=== PATIENT | male | born 1960 | race Caucasian/White ===

== ENCOUNTER 2020-01-19 16:53 | Observation (INO) | payer OTHER, MEDICAID, SELFPAY ==
[2020-01-19] VITALS (14 sets, daily range): BP systolic 102–142; BP diastolic 67–105; PULSE 60–150; RESP 16–24; TEMP 36.6–36.9; O2SAT 96–98; BMI 35.4
--- NOTE | ~2020-01-19 | XR_ITS ---
XR chest 2V DATE: 01/19/2020 17:31 INDICATION: Chest pain, shortness of breath for one day. Hypertension. Stent placed in March 2019. TECHNIQUE: 2 views COMPARISON: None FINDINGS: Normal heart size. Aortic arch calcification. No hilar or mediastinal enlargement. No pulmonary infiltrate or consolidation, pleural effusion or pulmonary vascular congestion or pneumo thorax. Diffuse osteopenia. IMPRESSION: No active cardiopulmonary disease Aortic arch calcification Reviewed, dictated and finalized at location A.
--- NOTE | 2020-01-19 16:56 | ECG_ITS ---
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
[2020-01-19] MEDS: dilTIAZem HCl INJ 25 MG/5 ML VIAL 10 MG IV PUSH ×2 (17:14→17:34)
[2020-01-19 17:20] LABS: Basophils Absolute Auto 0.1 K/mm3 (0.0-0.1); Basophils Percent Auto 0.8 % (0.2-1.2); Eosinophils Absolute Auto 0.2 K/mm3 (0-0.3); Hematocrit 46.3 % (42.0-52.0); Hemoglobin 15.7 g/dL (14.0-18.0); Immature Granulocyte Absolute 0.02 K/mm3 (0.00-0.031); Immature Granulocyte Percent A 0.3 % (0-0.5); Lymphocytes Absolute Auto 2.33 K/mm3 (0.9-3.2); Mean Corpuscular HGB Conc 33.9 g/dl (32-36); Mean Corpuscular Hemoglobin 30.8 pg (26-34); Mean Corpuscular Volume 90.8 fl (80-100); Mean Platelet Volume 11.2 fl (7.4-10.4); Monocytes Absolute Auto 0.6 K/mm3 (0.1-0.6); Monocytes Percent Auto 10.2 % (2.6-8.5); Neutrophils Absolute Auto 3.1 K/mm3 (1.3-6.7); Neutrophils Percent Auto 48.7 % (45.5-73.1); Platelet Count Result 215 k/mm3 (150-375); Red Cell Distribution Width 13.4 % (11.5-14.5); White Blood Count 6.3 K/mm3 (4.5-10.0)
[2020-01-19 17:31] LABS: Anion Gap 8 mmol/L (8-16); Blood Urea Nitrogen 17 mg/dL (9-20); Calcium 9.2 mg/dL (8.4-10.2); Carbon Dioxide 26 mmol/L (22-30); Chloride 107 mmol/L (98-107); Estimated CRCL calculation 127 ml/min; Estimated Glomerular Filt Rate > 60; Glucose 125 mg/dL (75-110); Potassium 3.6 mmol/L (3.4-5.0); Sodium 141 mmol/L (137-145)
[2020-01-19 17:35] LABS: INR 1.1; Prothrombin Time 14.3 Seconds (11.1-14.7)
[2020-01-19 17:36] LABS: Partial Thromboplastin Time 25.4 SECONDS (22.3-36.8)
[2020-01-19 17:43] LABS: Troponin I < 0.012 ng/mL (0.000-0.034)
--- NOTE | 2020-01-19 18:25 | ED.CHESTPAIN ---
HPI - Chest Pain General Chief Complaint: Chest Pain Stated Complaint: Chest pain Time Seen by Provider: 01/19/20 17:05 Source: patient and family Mode of arrival: ambulatory Limitations: no limitations History of Present Illness HPI narrative: 59 years old white male presents to the ED because of left chest pain radiating to his neck and jaw with diaphoresis that started last night, associated with shortness of breath on exertion and pounding fast heartbeat. History of coronary stent x1, history of atrial fibrillation which is converted to normal sinus rhythm currently on no anticoagulant medication. Patient on baby aspirin. MD complaint: chest pain Pertinent past history: coronary artery disease Related Data Home Medications Medication Instructions Recorded Confirmed acetaminophen 325 mg PO ONCE PRN 01/19/20 albuterol sulfate 1 puff INHALATION QID PRN 01/19/20 alprazolam 0.5 mg PO HS PRN 01/19/20 ascorbic acid (vitamin C) [Vitamin 1 g PO DAILY 01/19/20 C] aspirin 325 mg PO BID 01/19/20 cetirizine 10 mg PO DAILY 01/19/20 cholecalciferol (vitamin D3) 125 mcg PO DAILY 01/19/20 [Vitamin D3] clopidogrel 75 mg PO DAILY 01/19/20 losartan 100 mg PO DAILY 01/19/20 metoprolol tartrate 25 mg PO BID 01/19/20 nifedipine 10 mg PO HS 01/19/20 nitroglycerin 0.6 mg SUBLINGUAL Q5-15M PRN 01/19/20 pantoprazole PO 01/19/20 01/19/20 Allergies Allergy/AdvReac Type Severity Reaction Status Date / Time succinylcholine Allergy Other Verified 01/19/20 17:03 Review of Systems Review of Systems: Narrative: CONSTITUTIONAL: Denies fever, chills, or sweats. EYES: Denies visual changes, redness, or discharge. ENT: Denies rhinorrhea, congestion, sore throat, or otalgia. CARDIOVASCULAR: Complaining of chest pain RESPIRATORY: Denies cough or dyspnea. GASTROINTESTINAL: Denies abdominal pain, nausea, vomiting, or diarrhea. GENITOURINARY: Denies dysuria or hematuria. SKIN: Denies rash or itching. MUSCULOSKELETAL: Denies back pain, joint pain, or myalgia. NEUROLOGIC: Denies headache, numbness, or weakness. PSYCHIATRIC: Denies anxiety or depression. [facility] Past Medical History Medical History (Updated 01/19/20 @ 19:22 by Matheus Bird MD) Atrial fibrillation with rapid ventricular response Coronary artery disease Hypertension Social History Social History Gender identity (if verbalized by the patient): Male Exam Narrative: Exam Narrative: General appearance: Well-developed, well-nourished Skin: Normal color Head: Normocephalic, nontraumatic Eyes: Clear conjunctiva ENT: Oropharynx normal, ears normal, nose normal Neck: Supple, nontender Chest and respiratory: Airway patent, no respiratory distress, no accessory muscle use Heart: Tachycardia Abdomen: Soft, nontender, no organomegaly, quiet bowel sounds Vascular: Normal peripheral pulses, normal capillary refill. 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, no gross motor deficit Course Course Emergency Course: Stable Vital Signs Vital signs: Vital Signs Temperature 36.6 C 01/19/20 17:04 Pulse Rate 149 H 01/19/20 17:04 Respiratory Rate 24 H 01/19/20 17:04 Blood Pressure 142/105 H 01/19/20 17:04 Pulse Oximetry 98 01/19/20 17:04 Temperature 36.6 C 01/19/20 17:04 Pulse Rate 148 H 01/19/20 18:07 Respiratory Rate 18 01/19/20 17:44 Blood Pressure 117/90 01/19/20 18:07 Pulse Oximetry 98 01/19/20 17:44 MDM - Chest Pain MDM Narrative Medical decision making narrative: Patient presents with EKG showing atrial flutter 148 bpm associated with chest pain and palpitation. Patient currentl
[2020-01-19] MEDS: ENOXAPARIN 100 MG/ML SYRINGE SUB-Q (18:29)
[2020-01-19] MEDS: ENOXAPARIN 40 MG/0.4 ML SYRINGE SUB-Q (18:29)
[2020-01-19] MEDS: METOPROLOL TARTRATE INJ 5 MG/5 ML VIAL IV PUSH (18:58)
--- NOTE | 2020-01-19 19:20 | ECG_ITS ---
Measurements Intervals [place] Rate: 148 P: [place]: 0 QRS: 1 QRSD: 97 T: 3 QT: 285 QTc: 447 Interpretive Statements ATRIAL FLUTTER/TACHYCARDIA WITH RAPID VENTRICULAR RESPONSE NONSPECIFIC T-WAVE ABNORMALITY- INFERIOR LEADS ABNORMAL ECG Electronically Signed On 01-22-2020 9:04:36 CDT by Stevie Porras D.O.
[2020-01-19 20:28] LABS: Troponin I 0.043 ng/mL (0.000-0.034)
--- NOTE | 2020-01-19 21:26 | PM.IMHP ---
H&P: HPI History of Present Illness Date/Time: 01/19/20 21:26 Chief complaint: A flutter was RVR, chest pain Narrative: This is a pleasant 59 year old male with known paroxysmal atrial fibrillation, HTN, and CAD+ s/p #1 stent placed last February who presented to the hospital today with left sided chest pain that started last night and radiated towards his neck and jaw. Associated symptoms included shortness of breath and diaphoresis. His chest discomfort lasted about 1 hour in duration. He is currently moving his daughter and admits that he has been under a large amount of stress. 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 He woke up today feeling very tired and noticed that his heart rate was in the 150s when he was trying to check his blood pressure. The patient was evaluated in the ER and found to be in rapid atrial flutter. The patient was started on Cardizem and routine labs demonstrated a mildly elevated troponin. He denies any fevers, chills, cough, abdominal pain, dysuria, hematuria. headache, nausea, vomiting, diarrhea or rectal bleeding. He is not on any anticoagulants. The patient was anticoagulated with Lovenox in the ER tonight. 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 Review of Systems Review of Systems: All systems reviewed & are unremarkable except as noted in HPI and below PMFSH Past Medical History Medical History Atrial fibrillation with rapid ventricular response Coronary artery disease Hypertension Surgical History Surgical History History of heart artery stent Family History Family History Mother Emphysema lung Sibling Hypertension Sibling Hypertension Mother Hypertension Social History Social History Smoking status: Never smoker Second hand tobacco smoke exposure: No Alcohol intake: never Substance use: never Gender identity (if verbalized by the patient): Male Spiritual care concerns: No Meds Home Medications and Allergies Home Medications Medication Instructions Recorded Confirmed Type [place] 2,000 mg PO DAILY 01/19/20 01/19/20 History acetaminophen 650 mg PO Q6H PRN 01/19/20 01/19/20 History albuterol sulfate 1 puff INHALATION QID PRN 01/19/20 01/19/20 History alprazolam 0.5 mg PO DAILY PRN 01/19/20 01/19/20 History ascorbic acid (vitamin C) [Vitamin 1 g PO DAILY 01/19/20 01/19/20 History C] aspirin 81 mg PO BID 01/19/20 01/19/20 History cetirizine 10 mg PO DAILY 01/19/20 01/19/20 History cholecalciferol (vitamin D3) 2,000 unit PO DAILY 01/19/20 01/19/20 History [Vitamin D3] clopidogrel 75 mg PO DAILY 01/19/20 01/19/20 History echinacea 800 mg PO DAILY 01/19/20 01/19/20 History losartan 100 mg PO DAILY 01/19/20 01/19/20 History metoprolol tartrate 25 mg PO BID 01/19/20 01/19/20 History nifedipine 10 mg PO HS 01/19/20 01/19/20 History nitroglycerin 0.4 mg SUBLINGUAL Q5-15M PRN 01/19/20 01/19/20 History pantoprazole 40 mg PO DAILY 01/19/20 01/19/20 History Allergies Allergy/AdvReac Type Severity Reaction Status Date / Time succinylcholine Allergy Other Verified 01/19/20 17:03 Vital Signs Vital Signs - 24 hr 01/19/20 17:04 01/19/20 17:07 01/19/20 17:14 Temperature 36.6 C Pulse Rate 149 H 149 H 150 H Respiratory Rate 24 H Blood Pressure 142/105 H 142/105 H Pulse Oximetry 98 01/19/20 17:35 01/19/20 17:44 01/19/20 18:07 Temperature Pulse Rate 149 H 149 H 148 H Respiratory Rate 18 18 Blood Pressure 126/97 H 136/89 117/90 Pulse Oximetry 96 98 01/19/20 18:34 01/19/20 18:58 01/19/20 18:59 Temperature Pulse Rate 150 H 93 88 Respiratory Rate 18 16 Blood Pressure 128/80 128/99 H Pulse Oximetry 98 98 01/19/20 19:01 01/19/20 20:40 Temperature Pulse Rate 93 122 H Respira
--- NOTE | 2020-01-19 22:05 | PC.NURSE ---
This patient, Madan Perez, was admitted to IMU Room 209-. Patient/family oriented to hospital policies and general routines including ID bracelet, bed and alarms, visiting hours, pain management, procedures, bathroom and other care routines, personal items, smoking policy, room service/diet, and visiting hours. Valuables list has been completed. Information on how to activate the Rapid Response Team has been discussed. Patient/Family are encouraged to report perceived risks to care and to ask questions if they do not understand what they are told or what they should do.
[2020-01-20] VITALS (12 sets, daily range): BP systolic 106–129; BP diastolic 64–77; PULSE 68–98; RESP 16–18; TEMP 36.1–36.2; O2SAT 98–99
[2020-01-20 00:17] LABS: Troponin I 0.071 ng/mL (0.000-0.034)
[2020-01-20] MEDS: NIFEdipine 10 MG CAPSULE PO (02:32)
[2020-01-20 05:35] LABS: Basophils Absolute Auto 0.1 K/mm3 (0.0-0.1); Eosinophils Absolute Auto 0.2 K/mm3 (0-0.3); Eosinophils Percent Auto 3.4 % (0-4.4); Hematocrit 42.5 % (42.0-52.0); Hemoglobin 14.2 g/dL (14.0-18.0); Immature Granulocyte Absolute 0.03 K/mm3 (0.00-0.031); Immature Granulocyte Percent A 0.5 % (0-0.5); Lymphocytes Absolute Auto 2.61 K/mm3 (0.9-3.2); Lymphocytes Percent Auto 42.8 % (18.3-44.2); Mean Corpuscular HGB Conc 33.4 g/dl (32-36); Mean Corpuscular Hemoglobin 30.5 pg (26-34); Mean Corpuscular Volume 91.2 fl (80-100); Mean Platelet Volume 11.1 fl (7.4-10.4); Monocytes Absolute Auto 0.6 K/mm3 (0.1-0.6); Monocytes Percent Auto 10.2 % (2.6-8.5); Neutrophils Absolute Auto 2.6 K/mm3 (1.3-6.7); Neutrophils Percent Auto 42.1 % (45.5-73.1); Platelet Count Result 179 k/mm3 (150-375); Red Blood Count 4.66 M/mm3 (4.6-6.20); Red Cell Distribution Width 13.4 % (11.5-14.5); White Blood Count 6.1 K/mm3 (4.5-10.0)
[2020-01-20 05:53] LABS: Anion Gap 7 mmol/L (8-16); Blood Urea Nitrogen 17 mg/dL (9-20); Calcium 8.6 mg/dL (8.4-10.2); Carbon Dioxide 26 mmol/L (22-30); Chloride 107 mmol/L (98-107); Estimated CRCL calculation 127 ml/min; Estimated Glomerular Filt Rate > 60; Glucose 103 mg/dL (75-110); Magnesium 2.1 mg/dL (1.6-2.3); Potassium 3.6 mmol/L (3.4-5.0); Sodium 140 mmol/L (137-145)
--- NOTE | 2020-01-20 06:00 | ECG_ITS ---
Measurements Intervals [place] Rate: 79 P: 56 [place]: 156 QRS: 11 QRSD: 97 T: 11 QT: 397 QTc: 456 Interpretive Statements SINUS RHYTHM EARLY PRECORDIAL R/S TRANSITION BORDERLINE ST-T WAVE ABNORMALITY- INFERIOR LEADS BORDERLINE ECG Electronically Signed On 01-20-2020 7:42:24 CDT by Stevie Porras D.O.
--- NOTE | 2020-01-20 10:47 | PM.IMPN ---
Progress Note: A&P Assessment and Plan (1) Atrial flutter with rapid ventricular response: Code(s): I48.92 - Unspecified atrial flutter Status: Acute Assessment and Plan: Patient appears to have converted to NSR overnight. CP has improved significantly. Cardiology consulted and appreciate input. CHADSVASc score of 2; appreciate Cardiology input on a/c for this patient. Echo is pending. TSH WNL Will stop diltiazem drip Resume home metoprolol for now. Continue Lovenox Q12 for a/c for now; await further rec on a/c. CC will work on pricing of DOAC should he need a/c prior to leaving Await further rec from Cardiology Monitor (2) Elevated troponin: Code(s): R79.89 - Other specified abnormal findings of blood chemistry Status: Acute Assessment and Plan: [place] to be troponin leak likely secondary to rapid atrial flutter. Monitor Will hold on another troponin for now (3) Coronary artery disease: Qualifiers: Coronary Disease-Associated Artery/Lesion type: [place] artery [place] vs. transplanted heart: [place] heart Associated angina: with unspecified angina Qualified Code(s): I25.119 - Atherosclerotic heart disease of [place] coronary artery with unspecified angina pectoris Code(s): I25.10 - Atherosclerotic heart disease of [place] coronary artery without angina pectoris Status: Chronic Assessment and Plan: Continue home meds. Await further rec from Cardiology (4) Hypertension: Qualifiers: Hypertension type: unspecified Qualified Code(s): I10 - Essential (primary) hypertension Code(s): I10 - Essential (primary) hypertension Status: Chronic Assessment and Plan: BP 120s sys this morning Monitor blood pressure. Continue home antihypertensives. Subjective Date/time seen: 01/20/20 10:47 Interval history: Patient is a 59 yo M with history of known paroxysmal a. fib (rate controlled with metoprolol, at one time on a/c but has since been discontinued), HTN, and CAD+ s/p #1 stent placed last February who is here for evaluation of chest pain which is likely related to episode of a. fib with RVR. Patient has converted into sinus rhythm overnight. He feels much better since then. Has some mild, dull residual left sided chest discomfort that does not radiate; feels that if he had this at home he would take Tylenol and it would subside. He notes that he was at one time on a/c for his a. 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 fib was primarily due to his CAD and did not need this after his stent was placed last February. He notes that he did not take his medications as he normally should on which he thinks may have started his symptoms. No other current complaints at the moment. 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 Denies f/c/s, recent illness, headaches, dizziness, lightheadedness, changes in v/h, palpitations, sob/cough, n/v/d/c, abd pain, changes in BMs, dysuria, hematuria, cloudy urine, calf pain/swelling. Review of Systems Review of Systems: All systems reviewed & are unremarkable except as noted in HPI and below Exam Narrative: Exam Narrative: General: Patient resting supine in bed in no acute distress. HEENT: Normocephalic, EOMI, oral mucosa moist. Cardiovascular: Rate and rhythm are regular. No notable murmur, rub, or gallop. Respiratory: Lungs clear to auscultation all weber. Non-labored breathing. Abdomen: Soft, non-tender, non-distended, bowel sounds present. Extremities: Peripheral pulses intact. No edema. Neuro: No focal neurological deficits. Speech is clear. Telemetry shows NSR with pair of PVCs overnight; appears to have converted from a. fib overnight. No other ectopy
[2020-01-20] MEDS: ASCORBIC ACID 500 MG TABLET 1000 MG PO (11:10)
[2020-01-20] MEDS: ENOXAPARIN 100 MG/ML SYRINGE SUB-Q (11:11)
[2020-01-20] MEDS: ENOXAPARIN 40 MG/0.4 ML SYRINGE SUB-Q (11:11)
[2020-01-20] MEDS: PANTOPRAZOLE 40 MG TABLET PO (11:12)
[2020-01-20] MEDS: CLOPIDOGREL BISULFATE 75 MG TABLET PO (11:12)
[2020-01-20] MEDS: CHOLECALCIFEROL 1,000 UNITS TABLET 2000 UNITS PO (11:12)
[2020-01-20] MEDS: ASPIRIN 81 MG ENTERIC TABLET PO (11:13)
[2020-01-20] MEDS: LORATADINE 10 MG TABLET PO (11:13)
[2020-01-20] MEDS: LOSARTAN POTASSIUM 100 MG TABLET PO (12:47)
[2020-01-20] MEDS: METOPROLOL TARTRATE 25 MG TABLET PO (12:47)
--- NOTE | 2020-01-20 12:47 | PM.DS ---
DS: Admitting Diagnosis Admitting Diagnosis Admitting Diagnosis: A flutter was RVR, chest pain DS: Discharge Diagnosis Discharge Diagnosis (1) Atrial flutter with rapid ventricular response: Code(s): I48.92 - Unspecified atrial flutter Status: Acute Assessment and Plan: Patient appears to have converted to NSR overnight. CP has improved significantly. Cardiology consulted and appreciate input. Echo is pending. TSH WNL. Okay for discharge from Cardiology standpoint Continue home metoprolol Will undergo further evaluation as an outpatient and a decision for a/c will be decided at that time. F/u with Cardiology. Will provide information for patient to establish an appointment Await further rec from Cardiology Monitor (2) Elevated troponin: Code(s): R79.89 - Other specified abnormal findings of blood chemistry Status: Acute Assessment and Plan: [place] to be troponin leak likely secondary to rapid atrial flutter. (3) Coronary artery disease: Qualifiers: Associated angina: with unspecified angina Coronary Disease-Associated Artery/Lesion type: [place] artery [place] vs. transplanted heart: [place] heart Qualified Code(s): I25.119 - Atherosclerotic heart disease of [place] coronary artery with unspecified angina pectoris Code(s): I25.10 - Atherosclerotic heart disease of [place] coronary artery without angina pectoris Status: Chronic Assessment and Plan: Continue home meds Per Cardiology rec, will continue with aspirin BID and Plavix for now, and will add 20 mg Crestor daily F/u with Cardiology as outpatient (4) Hypertension: Qualifiers: Hypertension type: unspecified Qualified Code(s): I10 - Essential (primary) hypertension Code(s): I10 - Essential (primary) hypertension Status: Chronic Assessment and Plan: BP 120s sys this morning Monitor blood pressure. Continue home antihypertensives. DS: Summary Hospital Course Reason for hospitalization: Chest pain, a flutter with RVR Hospital Course: Patient is a 59 yo M with known paroxysmal atrial fibrillation, HTN, and CAD+ s/p #1 stent placed last February who presented to the hospital on 01/18 with left sided chest pain that started last night and radiated towards his neck and jaw. While in the ED, patient was found to be in a. flutter with RVR on ECG and IV cardizem bolus and drip, and IV Lopressor were administered; it appears patient returned to NSR after 5 mg Lopressor given. He was started on Lovenox 1mg/kg for anticoagulation. Patient admitted under this setting. Please see H&P for further details. Presenting VS: Temp Pulse Resp BP Pulse Ox 98 F 149 H 24 H 142/105 H 98 01/19/20 17:04 01/19/20 17:04 01/19/20 17:04 01/19/20 17:04 01/19/20 17:04 Presenting Pertinent labs: Serial troponin <0.012, 0.043, 0.071. TSH 1.650. CBC, coag, chemistry otherwise unremarkable Micro: none Imaging: Chest X-Ray 01/19/20 17:32 IMPRESSION: No active cardiopulmonary disease Aortic arch calcification EC/11 Interpretive Statements ATRIAL FLUTTER/TACHYCARDIA INCOMPLETE RIGHT BUNDLE BRANCH BLOCK BASELINE WANDER- I, II, III, AVR, AVL, V1 ABNORMAL ECG 01/19 Interpretive Statements SINUS RHYTHM EARLY PRECORDIAL R/S TRANSITION BORDERLINE ST-T WAVE ABNORMALITY- INFERIOR LEADS BORDERLINE ECG Patient was admitted to the hospitalist service for further evaluation. Dr. Stockton (Cardiology) was consulted from the ED. As above, it appeared patient had converted back to NSR in the ED. While on the IMU, patient was resumed on his home metoprolol dose. He was continued on Q12 Lovenox injections, however, it was felt that patient would have further evaluation for need for anticoagulation as an outpatient and that he would continue his alrea
--- NOTE | 2020-01-20 12:49 | PM.CNCAR ---
Assessment and Plan Additional Plan 59-year-old man with a history of atrial arrhythmias by his history of both atrial fibrillation and atrial flutter have occurred in the past. He also has a history of coronary artery disease with some sort of stenting procedure that was done February of 2019. The patient and his seem to indicate record recalling this was a left main intervention. Obviously I do not have those records. He presented with symptoms that were coincident with a flutter with rapid ventricular response. After catholic of sinus rhythm he has become asymptomatic. I told patient that I would either recommend advancing antiarrhythmic therapies we trying medication such as sotalol for example to try to more effectively maintain sinus rhythm obviously this would require him staying in the hospital for couple more days. The patient's preference is to remain on his current medications and see can electrophysiology consult for an ablation procedure which was the other option that was discussed in detail. The patient has some sort of uncommon insurance plan that may or may not allow me to refer him to a [facility] facility. For the time being though I believe it is reasonable to let him go home I will have my office contact him on Wednesday and try to determine where he can go for an electrophysiology consultation. Param Stockton MD [facility] History of Present Illness History of Present Illness Consult date/time: 01/20/20 12:49 Reason For Visit: A flutter was RVR, chest pain Narrative: This is a 59-year-old man that I am seeing at the request of the hospitalist in consultation because of symptoms of chest pain and atrial flutter with rapid ventricular response for which she was seen in the emergency room last evening and then admitted to the hospital. The patient apparently has a history of atrial flutter and atrial fibrillation and indicates that he has had several hospitalizations with rapid ventricular response since 2010. He believes the 1st of these was in [facility] where he was treated medically and placed on flecainide with good success. He then states he had another hospitalization not quite a year ago in February of 2019 which was in the [facility] area where he believes he had atrial flutter and some chest pain a catheterization apparently demonstrated coronary disease which was treated with stenting. The patient and his believes that it was a left main lesion that was stented obviously at do not have those records as I dictate this note. Following that he has recently moved to this area. 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 He has not yet done that. The patient was under a fair amount of stress in the couple of days that led up to this as he drove to [facility] and back in a moving truck helping his daughter move from the [place] area back to here. Generally speaking he does not have any exertional symptoms currently such as chest pain pressure or heaviness he denies any history of syncope. Yesterday when he had symptoms of chest pain he noticed that he was tachycardic came to the emergency room. He was given some intravenous diltiazem which did not seem to affect the rhythm. I was then consulted and instructed them to give the patient some intravenous metoprolol. It appears that appeared of time after that he did convert back to sinus rhythm and has become asymptomatic. His biomarkers show a very modest rise in his troponin following this his EKG after catholic of sinus rhythm looks normal. His current medical regimen includes aspirin, clopidogrel, metoprolol losartan. Also on a strange dose of nifedipine taking 10 mg at bedtime and curiously is not taking a statin. Review of Systems Constitutional: Constitutional: Reports no additional constitutional complaints Eyes: Eyes: Reports no additional eye complaints ENT:
--- NOTE | 2020-01-20 22:05 | ECHO_ITS ---
Patient Info Name: Madan Perez Age: 59 years : 1960 Gender: Male Ht: 79 in Wt: 324 lbs BSA: 2.91 m2 HR: 78 bpm BP: 106 / 64 mmHg Heart Rhythm: Sinus Rhythm Technical Quality: Good Exam Date: 01/20/2020 8:32 AM Exam Location: [facility] Pulmonary Exam Room: 209 Patient Status: Outpatient Admit Date: 01/19/2020 Staff Ordering Physician: Carlos Ortiz MD Lathe Spotter: Amanda Stewart RDCS Attending Provider: Gerald Granados PA-C Referring Physician: Angel STUART; Exam Type: CA echo doppler color flow Study Info Indications - a flutter /rvr cad chest pain sob Complete two-dimensional, color flow and Doppler transthoracic echocardiogram is performed. Summary 1. Complete two-dimensional, color flow and Doppler transthoracic echocardiogram is performed. 2. Left ventricular chamber dimension is normal. 3. Left ventricular systolic function is normal, estimated at 55-60%. 4. Right ventricular chamber dimension is mildly enlarged. 5. There is mild aortic valve sclerosis. Left Ventricle Left ventricular chamber dimension is normal. Left ventricular systolic function is normal, estimated at 55-60%. The left ventricular diastolic function is normal. Right Ventricle Right ventricular chamber dimension is mildly enlarged. Left Atria Left atrial chamber dimension is normal. Right Atria Right atrial chamber dimension is normal. Aortic Valve The aortic valve is trileaflet. There is mild aortic valve sclerosis. Pulmonic Valve The pulmonic valve is not well visualized. Mitral Valve The mitral valve has normal leaflets. Tricuspid Valve The tricuspid valve leaflets are normal. Pericardium/Pleural The pericardium appears normal. Aorta The aortic root size at the sinus of Valsalva is normal. Left Ventricular Outflow Tract Name Value Normal LVOT 2D LVOT Diameter 2.2 cm LVOT Doppler LVOT Peak Gradient 4 mmHg LVOT Mean Gradient 3 mmHg LVOT VTI 21 cm LVOT VTI/AV VTI Ratio 0.8 LVOT Stroke Volume 81 ml LVOT CO 18.8 l/min LVOT CI 6.5 l/min/m2 Pulmonic Valve Name Value Normal PV Doppler PV Peak Gradient 3 mmHg Mitral Valve Name Value Normal MV Doppler MV Decel Humphreys 372 cm/s2 MV PHT 64 ms MV Area (PHT) 3.4 cm2 4.0-5.0 MV Diastolic Function ---
== END 2020-01-20 13:41 | disposition home or self-care (01) ==
LOC: ANHED 19:30 → ANHIMU 20:51
PROVIDERS: Emergency Medicine; Family Medicine; Admitting Provider Internal Medicine; Emergency Provider Emergency Medicine; Visit Provider Family Medicine
DX: I48.92 Unspecified atrial flutter (principal); R07.9 Chest pain, unspecified; I48.0 Paroxysmal atrial fibrillation; I25.10 Atherosclerotic heart disease of native coronary artery without angina pectoris; I10 Essential (primary) hypertension; Z95.5 Presence of coronary angioplasty implant and graft; Z79.82 Long term (current) use of aspirin
CPT/HCPCS: 36415; 71046; 80048; 83735; 84443; 84484; 85025; 85610; 85730; 93005; 93306; 96365; 96366; 96372; 96375; 99285; A9270; G0378; J1650

== ENCOUNTER 2020-02-05 02:54 | Inpatient (IN) | payer OTHER, MEDICAID, SELFPAY ==
[2020-02-05] VITALS (32 sets, daily range): BP systolic 105–136; BP diastolic 65–108; PULSE 49–176; RESP 12–24; TEMP 35.8–37.2; O2SAT 95–99; BMI 36.3; BMI 36.4
--- NOTE | ~2020-02-05 | XR_ITS ---
EXAMINATION: XR chest 1V portable EXAM DATE: 02/05/2020 03:25 INDICATION: Chest pain, high blood pressure, shortness of breath. TECHNIQUE: Portable AP frontal chest x-ray was obtained. Comparison is made to prior examination from 01/19/2020. FINDINGS: The lungs are clear. There are no pleural effusions. The cardiomediastinal silhouette is within normal limits. There is no pneumothorax suspected. The bones and soft tissues are unremarkab le. Mild hyperinflation. IMPRESSION: Mild hyperinflation. Reviewed, dictated and finalized at location A. IMPRESSION: Mild hyperinflation.
--- NOTE | 2020-02-05 03:09 | ECG_ITS ---
Measurements Intervals [place] Rate: 161 P: [place]: 0 QRS: 5 QRSD: 94 T: 57 QT: 267 QTc: 437 Interpretive Statements ATRIAL FIBRILLATION WITH RAPID VENTRICULAR RESPONSE NONSPECIFIC ST & T-WAVE ABNORMALITY- ANTEROLAT/HIGH LAT LEADS ABNORMAL ECG Electronically Signed On 02-05-2020 6:44:03 CDT by Stevie Porras D.O.
--- NOTE | 2020-02-05 03:16 | ED.ARRPALP ---
HPI - Arrhythmia/Palpitations General Chief Complaint: Arrhythmia/Palpitations Stated Complaint: i think im in afib again Time Seen by Provider: 02/05/20 02:56 Source: RN notes reviewed History of Present Illness HPI narrative: Patient presents emergency department from home for atrial fibrillation. Patient states that he has a history of atrial fibrillation and felt like he went into earlier today. He states he noticed that some midsternal chest pain as well as shortness of breath. He states that he is in the hospital approximately week and a half ago for A. fib and had been started on medication at that time states he is on a daily aspirin is scheduled to see an director machine in [place] this week. He denies any fevers or chills abdominal pain nausea vomiting or any other symptoms Related Data Home Medications Medication Instructions Recorded Confirmed [place] 2,000 mg PO DAILY 01/19/20 01/19/20 acetaminophen 650 mg PO Q6H PRN 01/19/20 01/19/20 albuterol sulfate 1 - 2 puff INHALATION QID PRN 01/19/20 01/19/20 alprazolam 0.5 mg PO DAILY PRN 01/19/20 01/19/20 ascorbic acid (vitamin C) [Vitamin 1 g PO DAILY 01/19/20 01/19/20 C] aspirin 81 mg PO BID 01/19/20 01/19/20 cetirizine 10 mg PO DAILY 01/19/20 01/19/20 cholecalciferol (vitamin D3) 2,000 unit PO DAILY 01/19/20 01/19/20 [Vitamin D3] clopidogrel 75 mg PO DAILY 01/19/20 01/19/20 echinacea 800 mg PO DAILY 01/19/20 01/19/20 losartan 100 mg PO DAILY 01/19/20 01/19/20 metoprolol tartrate 25 mg PO BID 01/19/20 01/19/20 nifedipine 10 mg PO HS 01/19/20 01/19/20 nitroglycerin 0.4 mg SUBLINGUAL Q5-15M PRN 01/19/20 01/19/20 pantoprazole 40 mg PO DAILY 01/19/20 01/19/20 Allergies Allergy/AdvReac Type Severity Reaction Status Date / Time succinylcholine Allergy Severe Other Verified 02/05/20 02:59 Review of Systems Review of Systems: Narrative: Gen.: Denies fevers or chills ENT: Denies congestion Respiratory: Reports shortness of breath CV: See HPI GI: Denies abdominal pain nausea, emesis or diarrhea denies burning, urgency, frequency or hematuria Musculoskeletal: Denies back pain or muscle pain Neuro: Denies numbness, tingling, weakness or focal weakness Skin: Denies rash Except as documented, all other systems reviewed and negative PMFSH Past Medical History Medical History Atrial fibrillation with rapid ventricular response Coronary artery disease Hypertension Social History Social History Smoking status: Never smoker Second hand tobacco smoke exposure: No Alcohol intake: never Substance use: never Gender identity (if verbalized by the patient): Male Spiritual care concerns: No Exam Narrative: Exam Narrative: APPEARANCE: No acute distress, nontoxic, resting in bed EYES: EOMI HEENT: Normocephalic, atraumatic, OMM RESPIRATORY: No respiratory distress Clear to auscultation bilaterally with no rhonchi wheezing or rales. CARDIOVASCULAR: Tachycardic and irregular without murmurs rubs or gallops. ABDOMINAL: Soft, nontender, nondistended, no rebound or guarding MUSCULOSKELETAl: Moves all extremities. No clubbing, cyanosis or edema. NEURO: Awake and alert. Following commands, speech normal, no focal deficits SKIN:: Warm, dry. No rashes lesions or abrasions PSYCHIATRIC: Normal affect/mood, Course Course Emergency Course: Reviewed old records Discussed Dr. Macdonald presentation work-up. Excepts admission to her service. Request no further anticoagulation at this time. Request patient's Cardizem be increased to 15 mg an hour Discussed with patient and family results of workup and diagnosis. Discussed need for admission. Patient and family understand and agree to current treatment plan Vital Signs Vital signs: Vital Signs Temperature 98.9 F 02/05/20 02:59 Pulse Rate 176 H 02/05/20 02:59 Respiratory Rate 18 02/05/20
[2020-02-05 03:19] LABS: Basophils Absolute Auto 0.1 K/mm3 (0.0-0.1); Basophils Percent Auto 0.9 % (0.2-1.2); Eosinophils Absolute Auto 0.3 K/mm3 (0-0.3); Eosinophils Percent Auto 2.9 % (0-4.4); Hematocrit 46.5 % (42.0-52.0); Hemoglobin 15.9 g/dL (14.0-18.0); Immature Granulocyte Absolute 0.02 K/mm3 (0.00-0.031); Immature Granulocyte Percent A 0.2 % (0-0.5); Lymphocytes Absolute Auto 3.39 K/mm3 (0.9-3.2); Lymphocytes Percent Auto 39.7 % (18.3-44.2); Mean Corpuscular HGB Conc 34.2 g/dl (32-36); Mean Corpuscular Hemoglobin 31.7 pg (26-34); Mean Corpuscular Volume 92.8 fl (80-100); Mean Platelet Volume 11.4 fl (7.4-10.4); Monocytes Percent Auto 11.1 % (2.6-8.5); Neutrophils Absolute Auto 3.9 K/mm3 (1.3-6.7); Neutrophils Percent Auto 45.2 % (45.5-73.1); Platelet Count Result 202 k/mm3 (150-375); Red Blood Count 5.01 M/mm3 (4.6-6.20); Red Cell Distribution Width 13.2 % (11.5-14.5); White Blood Count 8.5 K/mm3 (4.5-10.0)
[2020-02-05] MEDS: dilTIAZem HCl INJ 25 MG/5 ML VIAL 10 MG IV PUSH (03:25)
[2020-02-05] MEDS: ASPIRIN 81 MG CHEWABLE TABLET 324 MG PO (03:26)
[2020-02-05 03:29] LABS: Partial Thromboplastin Time 25.4 SECONDS (22.3-36.8); Prothrombin Time 13.2 Seconds (11.1-14.7)
[2020-02-05 03:31] LABS: Anion Gap 8 mmol/L (8-16); Blood Urea Nitrogen 15 mg/dL (9-20); Calcium 9.4 mg/dL (8.4-10.2); Carbon Dioxide 30 mmol/L (22-30); Chloride 107 mmol/L (98-107); Estimated CRCL calculation 127 ml/min; Estimated Glomerular Filt Rate > 60; Glucose 124 mg/dL (75-110); Potassium 3.7 mmol/L (3.4-5.0); Sodium 145 mmol/L (137-145)
[2020-02-05 03:43] LABS: Troponin I < 0.012 ng/mL (0.000-0.034)
--- NOTE | 2020-02-05 03:48 | PC.NURSE ---
PT'S STATES THAT THIS PT HAS HIS FIRST APPT ON Wednesday02/08/[address] Angelito Milner MD - ELECTROPHYSIOLOGY AT [facility] [place] [place] FOR EVALUATION FOR HEART ABLASION.
[2020-02-05] MEDS: SODIUM CHLORIDE 0.9% IV 1,000 ML 999 ML IV CONT (04:38)
[2020-02-05 06:45] LABS: Troponin I 0.012 ng/mL (0.000-0.034)
[2020-02-05] MEDS: CLOPIDOGREL BISULFATE 75 MG TABLET PO (08:04)
[2020-02-05 09:29] LABS: Troponin I < 0.012 ng/mL (0.000-0.034)
[2020-02-05] MEDS: ACETAMINOPHEN 325 MG TABLET 650 MG PO (10:37)
--- NOTE | 2020-02-05 14:57 | PM.IMHP ---
H&P: HPI History of Present Illness Date/Time: Date of service:02/05/20 14:57 Cardiology short-stay H and P summary Chief complaint: AFib with RVR Narrative: Madan Perez is a 59 year old male With past medical history is significant for hypertension, paroxysmal atrial fibrillation and atrial flutter since 2010, history of CAD status post stent implantation to LAD February 2019 (per pt account), obesity, probable CRYSTAL, dyslipidemia who was recently admitted January 18 spontaneously converted to sinus rhythm presenting atrial flutter. Antiarrhythmic therapy was offered, however, he wishes stain is home medical therapy as he maintains sinus rhythm with outpatient electrophysiology evaluation which is scheduled for this . Patient presented with sharp chest pains left upper chest intermittently, shortness of breath, fatigue, observed diaphoresis, fatigue without nausea, vomiting, fevers, chills abdominal pain or bleeding. Patient claims compliance with his medications. He denies significant dizziness, no near syncope or syncope. He denies falls. He admits to frequent awakening, snoring with, wears breathe right strips to help. He relates he was previously on anticoagulation after stent with Eliquis 5 mg twice daily for 4-6 month then discontinued for unclear reasons. His related this history over the phone as well as the patient has vague recollections and is not recalling which medications were used and in what context. In fact, during our interview he would admit to (when asked) fleeting, brief sharp upper left chest pain which would come and go without rhyme or reason. He also admits to more frequent episodes when he is anxious or more stressed, but not with exertion per se. He states it is quite mild in severity and similar to what he has experienced for over 1 year. Review of Systems Review of Systems: All systems reviewed & are unremarkable except as noted in HPI and below Constitutional: Constitutional: Reports as per HPI, Reports no additional constitutional complaints, Reports fatigue and Reports lethargy Eyes: Eyes: Reports as per HPI and Reports no additional eye complaints ENT: Reports system reviewed and no additional complaints, except as documented and Reports as per HPI Cardiovascular: Cardiovascular: Reports as per HPI, Reports no additional cardiovascular complaints, Reports chest pain, Reports diaphoresis, Denies lightheadedness and Reports palpitations Respiratory: Respiratory: Reports as per HPI, Reports no additional respiratory complaints, Denies dyspnea and Denies dyspnea on exertion Gastrointestinal: Gastrointestinal: Reports as per HPI, Reports no additional gastrointestinal complaints, Denies abdominal pain, Denies melena, Denies hematochezia, Denies nausea and Denies vomiting Genitourinary: Genitourinary: Reports no additional male genitourinary complaints, Reports as per HPI and Denies hematuria Musculoskeletal: Musculoskeletal: Reports no additional musculoskeletal complaints and Reports as per HPI Integumentary/Breasts: Skin/Breast: Reports system reviewed and no additional complaints, except as docu, Reports as per HPI and Denies unusual bruising Neurologic: Reports system reviewed and no additional complaints, except as documented, Reports as per HPI, Denies abnormal gait, Denies confusion, Denies headache(s) and Denies numbness Psychiatric: Psychiatric: Reports no additional psychiatric complaints, Reports as per HPI, Reports anxiety and Denies confusion Endocrine: Endocrine: Reports no additional endocrine complaints and Reports as per HPI Hematologic/Lymphatic: Hematologic/Lymphatic: Reports no additional hematologic/lymphatic complaints, Reports as per HPI and Denies easy bleeding Allergic/Immunologic: Allergic/Immunologic: Reports no additional allergic/immunologic complaints, Reports as per HPI and Denies GI upset with certain foods PMFSH Past Medical History Medical History (Reviewed 0
[2020-02-05] MEDS: METOPROLOL TARTRATE 50 MG TAB PO (16:49)
[2020-02-05] MEDS: APIXABAN 5 MG TABLET PO (21:52)
--- NOTE | 2020-02-05 22:56 | PC.NURSE ---
02/05/20: patient refused apnea link.
--- NOTE | 2020-02-05 23:02 | PCRCNOTE ---
Patient was scheduled to have an apnea link done tonight. Patient refused stating he would be up and down all night with frequent urination. Patient also stated it may stress him out due to his A-fib.
[2020-02-06] VITALS (36 sets, daily range): BP systolic 96–138; BP diastolic 59–103; PULSE 65–153; RESP 11–27; TEMP 35.6–36.7; O2SAT 93–100
[2020-02-06] MEDS: METOPROLOL TARTRATE 50 MG TAB PO ×2 (00:48→08:09)
[2020-02-06 05:35] LABS: Hematocrit 45.1 % (42.0-52.0); Mean Corpuscular HGB Conc 33.3 g/dl (32-36); Mean Corpuscular Volume 93.2 fl (80-100); Mean Platelet Volume 11.1 fl (7.4-10.4); Platelet Count Result 202 k/mm3 (150-375); Red Blood Count 4.84 M/mm3 (4.6-6.20); Red Cell Distribution Width 13.2 % (11.5-14.5); White Blood Count 9.1 K/mm3 (4.5-10.0)
[2020-02-06 05:45] LABS: Anion Gap 9 mmol/L (8-16); Blood Urea Nitrogen 10 mg/dL (9-20); Calcium 8.9 mg/dL (8.4-10.2); Carbon Dioxide 29 mmol/L (22-30); Chloride 104 mmol/L (98-107); Estimated CRCL calculation 129 ml/min; Estimated Glomerular Filt Rate > 60; Glucose 111 mg/dL (75-110); Potassium 3.7 mmol/L (3.4-5.0); Sodium 142 mmol/L (137-145)
[2020-02-06] MEDS: CLOPIDOGREL BISULFATE 75 MG TABLET PO (08:09)
[2020-02-06] MEDS: ONDANSETRON INJ 4 MG/2 ML VIAL IV PUSH ×3 (08:09→20:22)
[2020-02-06] MEDS: APIXABAN 5 MG TABLET PO ×2 (08:09→20:22)
[2020-02-06] MEDS: ROSUVASTATIN 10 MG TABLET 20 MG PO (08:10)
[2020-02-06] MEDS: ACETAMINOPHEN 325 MG TABLET 650 MG PO (08:11)
--- NOTE | 2020-02-06 08:20 | ECG_ITS ---
Measurements Intervals [place] Rate: 125 P: -89 VT: 219 QRS: -4 QRSD: 123 T: 14 QT: 277 QTc: 400 Interpretive Statements ATRIAL FLUTTER WITH RPAID VENTRICULAR RESPONSE ABNORMAL ECG Electronically Signed On 02-06-2020 8:35:08 CDT by Stevie Porras D.O.
--- NOTE | 2020-02-06 10:43 | PM.PNCARD ---
Progress Note: A&P Assessment and Plan (1) Atrial fibrillation with rapid ventricular response: Code(s): I48.91 - Unspecified atrial fibrillation Status: Acute Assessment and Plan: Started on anticoagulation last night. Will require ESTEFANI guided cardioversion in attempt restore sinus rhythm. Will discontinue diltiazem infusion at time of cardioversion. Risks, benefits, and alternatives to ESTEFANI guided cardioversion explained in detail. All questions answered to his satisfaction. Risks including but not limited to bleeding, respiratory compromise, aspiration, esophageal perforation, failed cardioversion. Pt has been NPO since midnight. Discontinue Dilt gtt prior to CV. Post CV will likely observe overnight and adjust medical therapy as tolerated. Recommendations to follow. CHADS2 Vasc score 2 (HTN, CAD). Continue Eliquis 5mg BID (2) Atrial flutter with rapid ventricular response: Code(s): I48.92 - Unspecified atrial flutter Status: Acute Assessment and Plan: as above. Patient to keep outpatient electrophysiology appointment with recommendations for atrial flutter ablation in addition to medical management. (3) Coronary artery disease: Qualifiers: Associated angina: with unspecified angina Coronary Disease-Associated Artery/Lesion type: [place] artery [place] vs. transplanted heart: [place] heart Qualified Code(s): I25.119 - Atherosclerotic heart disease of [place] coronary artery with unspecified angina pectoris Code(s): I25.10 - Atherosclerotic heart disease of [place] coronary artery without angina pectoris Status: Chronic Assessment and Plan: Atypical CP worsened in association with atrial flutter vs atrial fibrillation h/o atypical recurrent chest pain, sharp, fleeting nonexertional noted prior to and ongoing post intervention/stent implantation to LAD February 2019 for which nifedipine was prescribed presumably for possible vasospasm. Discussed alternative such as amlodipine if diltiazem successfully weaned and as needed. As above, stop aspirin, continue clopidogrel with initiation of systemic anticoagulation. Antiplatelet use after February which would be 12 months since intervention can be further discussed on an outpatient basis as appropriate. Strongly advised statin therapy. Negative serial Trop I. (4) Hypertension: Qualifiers: Hypertension type: unspecified Qualified Code(s): I10 - Essential (primary) hypertension Code(s): I10 - Essential (primary) hypertension Status: Chronic Assessment and Plan: BP reasonably controlled. Resume Losartan as BP allows, possibly at reduced dose. (5) Dyslipidemia: Code(s): E78.5 - Hyperlipidemia, unspecified Status: Acute Assessment and Plan: Goal LDL less than 70. Resume statin therapy rosuvastatin 20 mg at bedtime. We discussed risk reduction for HI/CVA in the importance given his history of CAD with LAD stent. Patient verbalized understanding and agreed. Subjective Date/time seen: Date of service:02/06/20 10:43 Follow-up for atrial fibrillation/flutter with rapid ventricular response overnight converted to atrial flutter with rapid ventricular response heart rates up to 150 beats per minute. Patient feels worse in atrial flutter more chest discomfort, fatigue, shortness of breath and intermittent diaphoresis. Palpitations noted. Feels more tired. Did not sleep well. He has noted more chest discomfort while in atrial flutter in the past as well. Remains on diltiazem at 5 milligrams/hour with poor rate control despite metoprolol 50 mg Q 8 hour. Review of Systems Review of Systems: All systems reviewed & are unremarkable except as noted in HPI and below Constitutional: Constitutional: Reports as per HPI, Reports no additional constitutional complaints, Reports fatigue, Denies headache(s) and Reports lethargy Eyes: Eyes: Reports as per HPI and R
--- NOTE | 2020-02-06 10:48 | WPDMODSED ---
Moderate Sedation Note-Pt Data Patient Data Diagnosis: atrial flutter with rapid ventricular response Present Complaint: Fatigue, shortness of breath palpitations Procedure to be performed/Plan: transesophageal echocardiogram guided elective electrical cardioversion Allergies Allergy/AdvReac Type Severity Reaction Status Date / Time succinylcholine Allergy Severe Other Verified 02/05/20 02:59 Home Medications Medication Instructions Recorded Confirmed Type acetaminophen 650 mg PO Q6H PRN 01/19/20 02/05/20 History albuterol sulfate 1 - 2 puff INHALATION QID PRN 01/19/20 02/05/20 History alprazolam 0.5 mg PO DAILY PRN 01/19/20 02/05/20 History aspirin 81 mg PO BID 01/19/20 02/05/20 History cetirizine 10 mg PO DAILY 01/19/20 02/05/20 History clopidogrel 75 mg PO DAILY 01/19/20 02/05/20 History losartan 100 mg PO DAILY 01/19/20 02/05/20 History metoprolol tartrate 25 mg PO BID 01/19/20 02/05/20 History nifedipine 10 mg PO HS 01/19/20 02/05/20 History nitroglycerin 0.4 mg SUBLINGUAL Q5-15M PRN 01/19/20 02/05/20 History pantoprazole 40 mg PO DAILY 01/19/20 02/05/20 History Current Medications: Active Medications Acetaminophen (Tylenol Tablet) 650 mg PO Q6H PRN PRN Reason: Mild Pain (1-3) or Fever Last Admin: 02/06/20 08:11 Dose: 650 mg Documented by: Apixaban (Eliquis) 5 mg PO Q12HR [facility] Last Admin: 02/06/20 08:09 Dose: 5 mg Documented by: Clopidogrel Bisulfate (Plavix) 75 mg PO QAM [facility] Last Admin: 02/06/20 08:09 Dose: 75 mg Documented by: Diltiazem HCl (Cardizem 100 Mg/D5w 100 Ml) 100 mg in 100 mls @ 5 mls/hr IV CONT .Q20H [facility] Last Infusion: 02/06/20 03:56 Dose: 5 mg/hr, 5 mls/hr Documented by: Metoprolol Tartrate (Lopressor) 50 mg PO Q8H [facility] Last Admin: 02/06/20 08:09 Dose: 50 mg Documented by: Ondansetron HCl (Zofran Inj) 4 mg IV PUSH Q6H PRN PRN Reason: Nausea And Vomiting Last Admin: 02/06/20 08:09 Dose: 4 mg Documented by: Rosuvastatin Calcium (Crestor) 20 mg PO QAM [facility] Last Admin: 02/06/20 08:10 Dose: 20 mg Documented by: Sedation/Anesthesia: No previous sedation/anesthesia problems (including family history). [facility] Past Medical History Medical History Atrial fibrillation with rapid ventricular response Coronary artery disease Hypertension Surgical History Surgical History History of heart artery stent Family History Family History Mother Emphysema lung Sibling Hypertension Sibling Hypertension Mother Hypertension Social History Social History Smoking status: Never smoker Second hand tobacco smoke exposure: No Alcohol intake: never Substance use: never Substance use type: does not use Gender identity (if verbalized by the patient): Male Spiritual care concerns: No Mod Sed Physical Exam Physical Exam Pre Procedural Exam: Normal: Appearance, Eyes, Ears, Nose, Neck ( supple, normal range of motion), Throat ( posterior hypopharynx clear, nonerythematous), Airway ( normal anatomy, no obstruction), Lungs ( clear to auscultation bilaterally), Heart Size, Neuro Exam, Abdomen, Liver, Extremities and Skin and Variation: Heart Rate ( tachycardic) and Heart Rhythm ( regularly irregular) Hours since solid foods: 18 Hours since liquid intake: 18 Internal Medicine - PN: Obj Da Vital Signs Vital Signs: Vital Signs - 24 hr 02/05/20 11:52 02/05/20 12:00 02/05/20 14:00 Temperature 36.0 C L Pulse Rate 87 96 109 H Respiratory Rate 12 Blood Pressure 107/71 Pulse Oximetry 99 02/05/20 16:00 02/05/20 16:44 02/05/20 16:48 Temperature 35.9 C L Pulse Rate 99 95 95 Respiratory Rate 12 Blood Pressure 121/77 Pulse Oximetry 98 02/05/20 16:49 02/05/20 18:00 02/05/20 18:15 Temperature Pulse Rate 98 79 76 Resp
--- NOTE | 2020-02-06 10:50 | WPDTECDV ---
ESTEFANI with Cardioversion Date of procedure: 02/06/20 Procedure Type: transesophageal echocardiogram guided elective electrical cardioversion Diagnosis: atrial flutter with rapid ventricular response Indications: atrial flutter with rapid ventricular response Description of Procedure: Brief history present illness: Patient is a pleasant 59-year-old male with history of CAD status post stent to LAD February 2019, hypertension, longstanding paroxysmal atrial fibrillation and atrial flutter, probable CRYSTAL, obesity, with poorly tolerated atrial fibrillation with RVR at admission transitioning to less well tolerated atrial flutter with RVR referred for transesophageal echocardiogram-guided elective electrical cardioversion in attempt to restore sinus rhythm. Procedure in detail: After verbal and written informed consent was obtained the patient risks, benefits, and alternatives explained in detail the patient agreed to proceed with the plan of care as outlined above. Patient was evaluated at bedside in the [facility] procedure room. On examination, neck was supple with normal range of motion, no restrictions to opening of the oral cavity, jaw angle and posterior hypopharynx was clear. Lungs were clear to auscultation. Patient was placed in appropriate 30 to 45 degree angle in a supine, slight left lateral decubitus position. Patient was monitored throughout the study with telemetry, oxygen saturation, end-tidal CO2 monitoring, blood pressure, heart rate, and respirations. Anterior and posterior defibrillator pads placed in the appropriate positions. The posterior hypopharynx was then locally anesthetized using repeated administration of Hurricaine spray as well as gargled viscous lidocaine. After local anesthetic of the posterior hypopharynx was achieved and the oral bite block placed, moderate sedation was administered. Through the oral bite block, the transesophageal echocardiogram probe was advanced into the posterior hypopharynx and into the esophagus easily and without complication. Multiple, multiplanar echocardiographic images were obtained in multiple standard re-projections. Pulsed wave, continuous-wave, and color-flow Doppler were utilized in conjunction with this study. At the conclusion of the study, the transesophageal echocardiogram probe was removed easily and without complication. Patient tolerated the procedure well without difficulty. Patient was in atrial fibrillation throughout the study. Moderate Sedation/Anesthesia administration: Patient denied previous intolerance or complications with anesthesia/sedation. Please see sedation note for documentation of the pre-procedure physical examination. As noted above, after adequate local anesthesia of the posterior hypopharynx was achieved, a total of 5mg intravenous Versed and a total of 150 mcg intravenous Fentanyl in multiple divided doses was utilized for moderate sedation. Sedation start time was 1054 and end time was 1119 for a total of 25 minutes [id number] intra-procedure time. Sedation was administered by a qualified observer RN under my supervision with intra-procedure [id number] observation and management throughout the entirety of the procedure. There were no other issues or complications and patient tolerated the procedure well and sedation protocol well and I was present for the entirety. Findings: Left ventricular and right ventricular size and systolic function within normal limits with visually estimated left ventricular ejection fraction of 60% without wall motion abnormality. Left and right atrial size normal. Chiari network in RA noted, normal variant. Interatrial septum thin, aneurysmal with evidence of shunt with injection of agitated saline with and without Valsalva (more prominent with Valsalva) consistent with patent foramen ovale vs small ASD. Mitral and tricuspid valve are anatomically normal with normal leaflet excursion with trivial regurgitation identified. No mobile
--- NOTE | 2020-02-06 11:24 | ECG_ITS ---
Measurements Intervals [place] Rate: 75 P: 34 [place]: 149 QRS: -4 QRSD: 94 T: 9 QT: 385 QTc: 431 Interpretive Statements SINUS RHYTHM VOLTAGE CRITERIA FOR LVH BASELINE WANDER- I, II, III, AVL, AVF, V1, V3-V6 BORDERLINE ECG Electronically Signed On 02-06-2020 11:56:20 CDT by Stevie Porras D.O.
[2020-02-06] MEDS: METOPROLOL TARTRATE 50 MG TAB 100 MG PO (20:22)
[2020-02-07] VITALS (8 sets, daily range): BP systolic 120–137; BP diastolic 78; PULSE 77–88; RESP 18–22; TEMP 35.7–36.6; O2SAT 98–99
[2020-02-07] MEDS: CLOPIDOGREL BISULFATE 75 MG TABLET PO (08:41)
[2020-02-07] MEDS: ROSUVASTATIN 10 MG TABLET 20 MG PO (08:41)
[2020-02-07] MEDS: METOPROLOL TARTRATE 50 MG TAB 100 MG PO (08:42)
[2020-02-07] MEDS: APIXABAN 5 MG TABLET PO (08:42)
--- NOTE | 2020-02-07 10:05 | PM.DS ---
DS: Admitting Diagnosis Admitting Diagnosis Admitting Diagnosis: AFib with RVR DS: Discharge Diagnosis Discharge Diagnosis (1) Atrial fibrillation with rapid ventricular response: Code(s): I48.91 - Unspecified atrial fibrillation Status: Acute Assessment and Plan: Started on Eliquis 5 mg b.i.d. 02/06/2020 for CHADS2 Vasc score 2 (HTN, CAD). ESTEFANI guided cardioversion 02/07/2020 with successful islam to normal sinus rhythm. Metoprolol tartrate was increased to 100 mg every 12 hours. Follow-up with microsystems engineer as scheduled. Sleep study to be discussed as an outpatient (2) Atrial flutter with rapid ventricular response: Code(s): I48.92 - Unspecified atrial flutter Status: Acute Assessment and Plan: Follow-up with microsystems engineer is scheduled to discuss atrial flutter ablation. (3) Coronary artery disease: Qualifiers: Associated angina: with unspecified angina Coronary Disease-Associated Artery/Lesion type: [place] artery [place] vs. transplanted heart: [place] heart Qualified Code(s): I25.119 - Atherosclerotic heart disease of [place] coronary artery with unspecified angina pectoris Code(s): I25.10 - Atherosclerotic heart disease of [place] coronary artery without angina pectoris Status: Chronic Assessment and Plan: Atypical CP worsened in association with atrial flutter vs atrial fibrillation h/o atypical recurrent chest pain, sharp, fleeting nonexertional noted prior to and ongoing post intervention/stent implantation to LAD February 2019 for which nifedipine was prescribed presumably for possible vasospasm. Restarted discharge. Stop aspirin. Continue clopidogrel with initiation of systemic anticoagulation. Antiplatelet use after February which would be 12 months since intervention can be further discussed on an outpatient basis as appropriate. Started on rosuvastatin 20 mg daily To see Dr. Stockton in approximately 3 months. (4) Hypertension: Qualifiers: Hypertension type: unspecified Qualified Code(s): I10 - Essential (primary) hypertension Code(s): I10 - Essential (primary) hypertension Status: Chronic Assessment and Plan: BP reasonably controlled. Will leave off losartan at this time. Blood pressure to be monitored. Adding back nifedipine at bedtime 3 (5) Dyslipidemia: Code(s): E78.5 - Hyperlipidemia, unspecified Status: Acute Assessment and Plan: Goal LDL less than 70. Rosuvastatin 20 mg at bedtime. Risk reduction for KS/CVA and the importance given his history of CAD with LAD stent. DS: Summary Hospital Course Reason for hospitalization: Symptomatic atrial fibrillation with a rapid ventricular response Hospital Course: 59 year old male with past medical history significant for hypertension, paroxysmal atrial fibrillation and atrial flutter since 2010, history of CAD status post stent implantation to LAD February 2019 (per his account), obesity, probable CRYSTAL, dyslipidemia who was admitted January 18 spontaneously converted to sinus rhythm presenting in atrial flutter. Antiarrhythmic therapy was offered, however, he wished to continue his home medical therapy as he maintains sinus rhythm with outpatient electrophysiology evaluation which is scheduled for February 08, 2020. He presented with sharp chest pains left upper chest intermittently, shortness of breath, fatigue, observed diaphoresis, fatigue without nausea, vomiting, fevers, chills abdominal pain or bleeding. He claimed compliance with his medications. He denies significant dizziness, no near syncope or syncope. He denied falls. He was previously anticoagulated with Eliquis 5 mg twice daily for 4-6 months and then discontinued for unclear reasons. He was started on a diltiazem drip an
== END 2020-02-07 12:00 | disposition home or self-care (01) | DRG 310 ==
LOC: ANHED 05:37 → ANHIMU 06:21
PROVIDERS: Internal Medicine Cardiovascular Disease; Admitting Provider Internal Medicine Cardiovascular Disease; Emergency Provider Emergency Medicine; Visit Provider Nurse Practitioner Adult Health
PROC: 5A2204Z Restoration of Cardiac Rhythm, Single (ICD-10-PCS; principal; 2020-02-06 09:30)
PROC: 5A2204Z Restoration of Cardiac Rhythm, Single (ICD-10-PCS; CPT 93312; 2020-02-06 09:30)
DX: I48.91 Unspecified atrial fibrillation (principal); I48.92 Unspecified atrial flutter; I10 Essential (primary) hypertension; I25.119 Atherosclerotic heart disease of native coronary artery with unspecified angina pectoris; E78.5 Hyperlipidemia, unspecified; E66.9 Obesity, unspecified; Z79.82 Long term (current) use of aspirin; Z79.899 Other long term (current) drug therapy
CPT/HCPCS: 36415; 71045; 80048; 84484; 85025; 85027; 85610; 85730; 92960; 93005; 93312; 93320; 93325; 96365; 96366; 99285; A9270; G0378; J2250; J2405; J3010; J7030; J7040

== ENCOUNTER 2020-07-24 11:59 | Emergency (ER) | payer OTHER, SELFPAY ==
--- NOTE | 2020-07-24 12:00 | PC.NURSE ---
Pt signs in and upon learning of the visitor policy states that he's going to go outside and speak to his . Ambulatory out of exit.
--- NOTE | 2020-07-24 12:10 | PC.NURSE ---
Pt has not returned to the department, assume the patient has left without being seen prior to triage.
== END 2020-07-24 12:10 | disposition left against medical advice (07) ==
LOC: ANHED 12:16
DX: Z53.21 Procedure and treatment not carried out due to patient leaving prior to being seen by health care provider (principal)
CPT/HCPCS: 99199

== ENCOUNTER → 2020-12-16 03:37 | Outpatient (CLI) | payer BC, SELFPAY ==
[2020-12-16 17:32] LABS: SARS-CoV-2 RNA PCR Negative
== END ==
PROVIDERS: Visit Provider Specialist
DX: Z01.812 Encounter for preprocedural laboratory examination (principal); Z20.822 Contact with and (suspected) exposure to COVID-19
CPT/HCPCS: C9803; U0003; U0005

== ENCOUNTER 2020-12-18 07:04 | Day surgery (SDC) | payer BC, SELFPAY ==
[2020-12-17 15:38] VITALS: BMI 35.8
[2020-12-18] VITALS (17 sets, daily range): BP systolic 124–155; BP diastolic 83–103; PULSE 69–78; RESP 14–22; TEMP 35.6–36.4; O2SAT 95–99; BMI 36.1
[2020-12-18 07:51] LABS: Basophils Absolute Auto 0.1 K/mm3 (0.0-0.1); Basophils Percent Auto 1.3 % (0.2-1.2); Eosinophils Absolute Auto 0.2 K/mm3 (0-0.3); Eosinophils Percent Auto 2.8 % (0-4.4); Hematocrit 45.3 % (42.0-52.0); Hemoglobin 15.2 g/dL (14.0-18.0); Immature Granulocyte Absolute 0.01 K/mm3 (0.00-0.031); Immature Granulocyte Percent A 0.2 % (0-0.5); Lymphocytes Absolute Auto 1.74 K/mm3 (0.9-3.2); Lymphocytes Percent Auto 32.8 % (18.3-44.2); Mean Corpuscular HGB Conc 33.6 g/dl (32-36); Mean Corpuscular Hemoglobin 30.3 pg (26-34); Mean Corpuscular Volume 90.4 fl (80-100); Mean Platelet Volume 10.9 fl (7.4-10.4); Monocytes Absolute Auto 0.5 K/mm3 (0.1-0.6); Monocytes Percent Auto 9.4 % (2.6-8.5); Neutrophils Absolute Auto 2.8 K/mm3 (1.3-6.7); Neutrophils Percent Auto 53.5 % (45.5-73.1); Platelet Count Result 185 k/mm3 (150-375); Red Blood Count 5.01 M/mm3 (4.6-6.20); Red Cell Distribution Width 13.4 % (11.5-14.5); White Blood Count 5.3 K/mm3 (4.5-10.0)
[2020-12-18 08:01] LABS: Prothrombin Time 12.8 Seconds (11.1-14.7)
[2020-12-18 08:03] LABS: Anion Gap 9 mmol/L (8-16); Blood Urea Nitrogen 11 mg/dL (9-20); Carbon Dioxide 23 mmol/L (22-30); Chloride 105 mmol/L (98-107); Estimated CRCL calculation 141 ml/min; Estimated Glomerular Filt Rate > 60; Glucose 115 mg/dL (65-110); Potassium 4.2 mmol/L (3.4-5.0); Sodium 137 mmol/L (137-145)
--- NOTE | 2020-12-18 09:02 | WPDMODSED ---
Moderate Sedation Note-Pt Data Patient Data Diagnosis: Intermittent chest pain coronary artery disease with previous PCI atrial fibrillation previous catheter ablation, currently in sinus rhythm Present Complaint: intermittent chest pain Procedure to be performed/Plan: left heart catheterization Allergies Allergy/AdvReac Type Severity Reaction Status Date / Time succinylcholine Allergy Severe Unresponsiv Verified 12/18/20 07:49 e Home Medications Medication Instructions Recorded Confirmed Type albuterol sulfate 1 - 2 puff INHALATION QID PRN 01/19/20 12/17/20 History alprazolam 0.5 mg PO DAILY PRN 01/19/20 12/17/20 History cetirizine 10 mg PO DAILY 01/19/20 12/18/20 History nitroglycerin 0.4 mg SUBLINGUAL Q5-15M PRN 01/19/20 12/17/20 History apixaban [Eliquis] 5 mg PO Q12HR #60 tablet 02/07/20 12/18/20 Rx clopidogrel 75 mg PO DAILY #30 tablet 02/07/20 12/18/20 Rx metoprolol tartrate 100 mg PO DAILY #60 tablet 02/07/20 12/18/20 Rx pantoprazole 40 mg PO DAILY #30 tablet 02/07/20 12/18/20 Rx ascorbic acid (vitamin C) 1 g PO DAILY 12/17/20 12/17/20 History ashwagandha root extract 300 mg PO DAILY 12/17/20 12/17/20 History cholecalciferol (vitamin D3) 25 mcg PO DAILY 12/17/20 12/17/20 History cyanocobalamin (vitamin B-12) 2,000 mcg PO DAILY 12/17/20 12/17/20 History echinacea 400 mg PO DAILY 12/17/20 12/17/20 History zinc gluconate [Zinc-50] 50 mg PO DAILY 12/17/20 12/17/20 History Current Medications: Active Medications Sodium Chloride (Normal Saline Iv) 500 mls @ 100 mls/hr IV CONT .Q5H CHASITY Sedation/Anesthesia: No previous sedation/anesthesia problems (including family history). [facility] Past Medical History Medical History Atrial fibrillation with rapid ventricular response Coronary artery disease Hypertension Surgical History Surgical History History of heart artery stent Family History Family History Mother Emphysema lung Sibling Hypertension Sibling Hypertension Mother Hypertension Social History Social History Smoking status: Never smoker Second hand tobacco smoke exposure: No Alcohol intake: never Substance use: never Substance use type: does not use Living arrangements: with family Gender identity (if verbalized by the patient): Male Spiritual care concerns: No Mod Sed Physical Exam Physical Exam Pre Procedural Exam: Normal: Neck, Throat, Airway, Lungs, Heart Size, Heart Rate, Heart Rhythm, Neuro Exam and Extremities and Variation: Appearance ( overweight white male no distress) Hours since solid foods: 12 Hours since liquid intake: 12 Mallampati Classification: class II Internal Medicine - PN: Obj Da Vital Signs Vital Signs: Vital Signs - 24 hr 12/18/20 07:45 Temperature 35.6 C L Pulse Rate 77 Respiratory Rate 19 Blood Pressure 145/95 H Pulse Oximetry 97 Meds/Results Medications: Active Medications Generic Name Dose Route Start Last Admin Trade Name Freq PRN Reason Stop Dose Admin Sodium Chloride 500 mls @ 100 mls/hr 12/17/20 15:50 Normal Saline Iv IV CONT .Q5H CHASITY Labs CBC & Chem 7: 12/18/20 07:32 12/18/20 07:32 Labs: Laboratory Results - last 24 hr 12/18/20 12/18/20 12/18/20 07:32 07:32 07:32 WBC 5.3 RBC 5.01 Hgb 15.2 Hct 45.3 MCV 90.4 MCH 30.3 MCHC 33.6 RDW 13.4 Plt Count 185 MPV 10.9 H Immature Gran % (Auto) 0.2 Neut % (Auto) 53.5 Lymph % (Auto) 32.8 [place] % (Auto) 9.4 H Eos % (Auto) 2.8 Baso % (Auto) 1.3 H Lymph # (Auto) 1.74 [place] # (Auto) 0.5 Eos # (Auto) 0.2 Baso # (Auto) 0.1 Abs Immat Gran (auto) 0.01 Absolute Neuts (auto) 2.8 Absolute Nucleated RBC 0.0 Nucleated RBC % 0.0 PT 12.8 I
--- NOTE | 2020-12-18 09:31 | WPDCARDPROC ---
Cardiac Cath Procedure Note Date of procedure:: 12/18/20 Performing physician:: Param Stockton MD Indication:: coronary artery disease with previous PCI recurrent intermittent chest pain Brief clinical history:: this is a 60-year-old man who reports a history of coronary disease with treated with coronary stenting about a year and a half ago at another hospital. He continues to have symptoms since his PCI which are creating concern regarding status of his coronary artery disease. In this setting a follow-up angiogram has been recommended and scheduled for today. Procedure Procedure performed:: Left heart catheterization Sedation/Medication given:: fentanyl 50 mg Versed 2 mg case start time 9:10 a.m. case end time 9:27 a.m. sedation provided by Ru Box RN, trained observer Access site:: right femoral artery Estimated blood loss:: 15-20 cc Procedure note:: patient was brought to the cardiac catheterization lab in the postabsorptive state where the right femoral triangle was prepared and draped in the usual fashion. Anesthesia was provided with 1% lidocaine infiltrated locally. Using modified Seldinger technique 5 Norwegian sheath was placed into the artery and then left heart catheterization was carried out. A 5 Norwegian angled pigtail catheter was used to measure left-sided hemodynamics and to inject the left ventriculogram in the LOCK[place] projection. After this a 5 [place] FL4 catheter was used to engage and inject the left coronary artery in multiple projections. The 5 [place] JR4 catheter was then used to engage injected right coronary artery in orthogonal projections. After this the procedure was terminated the cineangiograms were reviewed. Angiogram was done of the femoral artery through the sheath at which time it was determined the sheath will be removed removed with direct manual compression. He tolerated the procedure well there were no apparent complications and the patient left the cardiac catheterization lab with no evidence of a groin hematoma. Findings:: Hemodynamics: Central aortic pressure is 148 over 86 left ventricle 148/0 end-diastolic 10 there is no gradient on pullback across the aortic valve. Left ventricle: The left ventricle is normal in size all segments contract appropriately ejection fraction is 55-60% without regional wall motion abnormality. The left main coronary artery is nicely patent the left anterior descending is a moderate caliber artery there is visible stent material in the proximal segment of the LAD prior to and it just distal to the origin of the major diagonal branch. There is no significant stenosis in the LAD or the diagonal. As described above the diagonal is jailed by this stent but does have MIKA 3 flow in it and no disease. Circumflex is a moderate caliber vessel giving rise to the marginal branches and a posterior branch the circumflex system is angiographically free of disease the right coronary artery is large caliber dominant to the posterior circulation the right coronary artery is angiographically unremarkable. Conclusion:: 1. Right coronary dominant circulation with no significant coronary stenosis 2. previously deployed stent in the proximal aspect of the LAD with no significant stenosis. The stent does bridge over the origin of the large diagonal branch vessel over angiographically non disease 3. normal left ventricular systolic function 4. current symptoms of chest pain are atypical and nonischemic based on these findings Param Stockton MD FACC
--- NOTE | 2020-12-18 12:54 | SUR.PHASEII ---
Right groin access site without hematoma or bleeding. Pt voiding per urinal without difficulty. HOB elevated to 30 degrees at 12:00. No nausea or vomiting - appetite good.
--- NOTE | 2020-12-18 16:15 | SUR.PHASEII ---
Pt departed hospital with who was to drive patient home. DC instructions reviewed with patient and . Both verbalized understanding of DC instructions. IV removed, catheter was intact, bleeding controlled. Puncture site assessed, site remains clean, dry, intact. No signs of bleeding or hematoma. VSS.
== END 2020-12-18 15:50 | disposition home or self-care (01) ==
PROVIDERS: Visit Provider Specialist
PROC: 4A023N7 Measurement of Cardiac Sampling and Pressure, Left Heart, Percutaneous Approach (ICD-10-PCS; CPT 93452; principal; 2020-12-18 08:30)
DX: I25.10 Atherosclerotic heart disease of native coronary artery without angina pectoris (principal); R07.89 Other chest pain; I10 Essential (primary) hypertension; I48.91 Unspecified atrial fibrillation; Z95.5 Presence of coronary angioplasty implant and graft; Z79.01 Long term (current) use of anticoagulants
CPT/HCPCS: 36415; 80048; 85025; 85610; 93458; C1887; C1894; J0461; J1644; J2250; J3010; J7030; J7040

== ENCOUNTER → 2022-08-04 14:18 | Outpatient (CLI) | payer BC, SELFPAY ==
--- NOTE | ~2022-08-04 | XR_ITS ---
EXAMINATION: XR hip RT min 2V DATE: 08/04/2022 14:41 INDICATION: Right hip pain TECHNIQUE: Two views of right hip were obtained. COMPARISON: None. FINDINGS: Bone alignment is normal. There is no fracture. There is mild osteoarthritis of the hip. Th e soft tissues are unremarkable. IMPRESSION: 1. Mild osteoarthritis of the hip. Reviewed, dictated and finalized at location F.
== END ==
PROVIDERS: PCP Family Medicine; Visit Provider Nurse Practitioner Family
DX: M16.11 Unilateral primary osteoarthritis, right hip (principal)
CPT/HCPCS: 73502

== ENCOUNTER 2022-12-15 10:50 | Emergency (ER) | payer BC, SELFPAY ==
[2022-12-15] VITALS (10 sets, daily range): BP systolic 144–172; BP diastolic 80–104; PULSE 68–80; RESP 13–19; TEMP 36.8; O2SAT 92–99
--- NOTE | ~2022-12-15 | XR_ITS ---
Portable chest x-ray Comparison: 02/05/2020 Clinical History: Chest pain Findings: There is probable central congestive change and minimal bibasilar interstitial edema. Car diomediastinal silhouette is stable. Bones and soft tissues are unremarkable. Impression: Central congestive change and probable minimal bibasilar interstitial edema. Reviewed, dictated and finalized at [facility]. Impression: Central congestive change and probable minimal bibasilar interstitial edema.
--- NOTE | 2022-12-15 10:51 | ECG_ITS ---
Measurements Intervals [place] Rate: 74 P: 52 [place]: 164 QRS: 5 QRSD: 105 T: 28 QT: 361 QTc: 402 Interpretive Statements SINUS RHYTHM WITHIN NORMAL LIMITS COMPARED TO ECG 02/06/2020 11:27:00 NO SIGNIFICANT CHANGES Electronically Signed On 12-15-2022 13:25:05 CDT by Param Stockton M.D.
[2022-12-15 11:27] LABS: Basophils Absolute Auto 0.1 K/mm3 (0.0-0.1); Basophils Percent Auto 0.8 % (0.2-1.2); Eosinophils Absolute Auto 0.1 K/mm3 (0-0.3); Hematocrit 48.1 % (42.0-52.0); Hemoglobin 15.7 g/dL (14.0-18.0); Immature Granulocyte Absolute 0.02 K/mm3 (0.00-0.031); Immature Granulocyte Percent A 0.3 % (0-0.5); Lymphocytes Absolute Auto 2.04 K/mm3 (0.9-3.2); Lymphocytes Percent Auto 30.7 % (18.3-44.2); Mean Corpuscular HGB Conc 32.6 g/dl (32-36); Mean Corpuscular Hemoglobin 30.4 pg (26-34); Mean Platelet Volume 10.7 fl (7.4-10.4); Monocytes Absolute Auto 0.6 K/mm3 (0.1-0.6); Monocytes Percent Auto 9.5 % (2.6-8.5); Neutrophils Absolute Auto 3.8 K/mm3 (1.3-6.7); Neutrophils Percent Auto 56.7 % (45.5-73.1); Platelet Count Result 195 k/mm3 (150-375); Red Blood Count 5.17 M/mm3 (4.6-6.20); Red Cell Distribution Width 13.2 % (11.5-14.5); White Blood Count 6.6 K/mm3 (4.5-10.0)
[2022-12-15 11:37] LABS: Alanine Aminotransferase 79 U/L (6-50); Albumin Level 4.4 g/dL (3.5-5.1); Alkaline Phosphatase 74 U/L (38-126); Anion Gap 3 mmol/L (8-16); Aspartate Amino Transferase 50 U/L (17-59); Bilirubin,Total 0.7 mg/dL (0.2-1.3); Blood Urea Nitrogen 14 mg/dL (9-20); Calcium 8.9 mg/dL (8.4-10.2); Carbon Dioxide 29 mmol/L (22-30); Chloride 106 mmol/L (98-107); Estimated CRCL calculation 126 ml/min; Estimated Glomerular Filt Rate > 60; Glucose 103 mg/dL (65-110); Lipase 89 U/L (23-300); Potassium 3.8 mmol/L (3.4-5.0); Prothrombin Time 13.5 Seconds (11.1-14.7); Sodium 138 mmol/L (137-145)
[2022-12-15 11:38] LABS: Partial Thromboplastin Time 25.3 SECONDS (22.3-36.8)
[2022-12-15 11:49] LABS: Troponin I < 0.012 ng/mL (0.000-0.034)
--- NOTE | 2022-12-15 13:30 | ED.CHESTPAIN ---
HPI - Chest Pain General Chief Complaint: Chest Pain Stated Complaint: chest pain Time Seen by Provider: 12/15/22 13:09 History of Present Illness HPI narrative: Patient is a 62-year-old male with a history of CAD, hypertension, GERD presenting with chest pain. Patient states that he has had intermittent left-sided chest pain for the last several days to a week. States that he saw his ENT who checked his blood pressure and was concerned that it was so high. States that he checked his blood pressure this morning it was in the 170s so he again became concerned. Currently denies any complaints. States that he feels well. He is asking to go home. Denies lightheadedness, shortness of breath, leg swelling, abdominal pain, vomiting, diarrhea. Related Data Home Medications Medication Instructions Recorded Confirmed albuterol sulfate 90 mcg/actuation 1 - 2 puff inhalation QID PRN 01/19/20 12/14/22 aerosol inhaler Shortness Of Breath nitroglycerin 0.6 mg sublingual 0.4 mg sublingual Q5-15M PRN Chest 01/19/20 12/14/22 tablet Pain clopidogrel 75 mg tablet 75 mg PO DAILY 08/04/22 12/14/22 metoprolol succinate 100 mg 100 mg PO DAILY 12/14/22 12/14/22 tablet,extended release 24 hr Allergies Allergy/AdvReac Type Severity Reaction Status Date / Time succinylcholine Allergy Severe Unresponsiv Verified 12/14/22 10:31 e Review of Systems Review of Systems: All systems reviewed & are unremarkable except as noted in HPI and below PMFSH Past Medical History Medical History Allergies Atrial fibrillation with rapid ventricular response BMI 38.0-38.9,adult Coronary artery disease Encounter to establish care History of drainage from ear Hypersomnia Hypertension Paroxysmal atrial fibrillation Right hip pain Screening for colon cancer Seasonal allergic conjunctivitis Seasonal rhinitis Snoring Tinnitus Surgical History Surgical History History of cardiac radiofrequency ablation History of heart artery stent Family History Family History Mother Emphysema lung Hypertension Sibling Hypertension Sibling Hypertension Mother No problems noted. Social History Social History Smoking status: Never smoker Second hand tobacco smoke exposure: No Alcohol intake: never Substance use: never Substance use type: does not use Lack of Transportation: No Lack of Food: Never True Current Housing: Decline to Answer Concerned About Future Housing: No Difficulty Paying Gas/Electric Bills: No Currently Unemployed: No Living arrangements: with family Occupation/Education: occupation Additional occupation/education comments: [employer] Gender identity (if verbalized by the patient): Male Sexual Orientation (if Verbalized by the Patient): Straight or Heterosexual Spiritual care concerns: No Agree to blood products: Yes Exam Narrative: GENERAL: Well-appearing, well-nourished, and in no acute distress. Pleasant and cooperative HEAD: Normocephalic, atraumatic. EYES: PERRLA and EOMI. ENT: Nares clear, no rhinorrhea or epistaxis. Mucous membranes moist. NECK: Supple. CHEST: Clear to auscultation. No respiratory distress. HEART: Regular rate and rhythm ABDOMEN: Soft, nontender, nondistended EXTREMITIES: Normal range of motion. No edema. SKIN: Warm, dry, no rash. NEURO: No focal deficits. Alert and oriented x3. PSYCH: Normal mood and affect. Course Vital Signs Vital signs: Vital Signs Pulse Rate 80 12/15/22 10:57 Respiratory Rate 18 12/15/22 10:57 Pulse Oximetry 98 12/15/22 10:57 Temperature 98.2 F 12/15/22 11:02 Pulse Rate 76 12/15/22 13:31 Respiratory Rate 18 12/15/22 13:31 Blood Pressure 144/104 H 0
== END 2022-12-15 13:52 | disposition home or self-care (01) ==
PROVIDERS: Emergency Medicine; Emergency Provider Emergency Medicine; PCP Family Medicine
DX: R07.89 Other chest pain (principal); I48.91 Unspecified atrial fibrillation; I25.10 Atherosclerotic heart disease of native coronary artery without angina pectoris; I10 Essential (primary) hypertension
CPT/HCPCS: 36415; 71045; 80053; 83690; 84484; 85025; 85610; 85730; 93005; 99284